=== PATIENT | female | born 1975 | race Caucasian/White ===

== ENCOUNTER 2017-03-02 09:16 | Emergency (ER) | payer MEDICAID ==
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
[2017-03-02 10:37] LABS: Hematocrit 43.7 % (37.0-47.0); Hemoglobin 15.3 gm/dL (12.5-16.0); Mean Cell Volume 91.6 fl (78-100); Mean Corpuscular Hemoglobin 32.1 pg (27-31); Mean Platelet Volume 9.7 fl (6.0-9.5); Neutrophil # 7.6 K/mm3 (1.3-6.0); Neutrophil % 72.8 % (42-75.0); Platelet Count 307 K/mm3 (150-450); Red Blood Count 4.77 M/mm3 (4.2-5.4); Red Cell Distribution Width 12.8 % (11.5-14.0); White Blood Count 10.4 K/mm3 (4.0-10.5)
[2017-03-02 10:38] LABS: Urine Bilirubin Negative (NEGATIVE); Urine Blood Negative /ul (NEGATIVE); Urine Ketone Negative (NEGATIVE); Urine Nitrite Negative (NEGATIVE); Urine Protein Negative (NEGATIVE); Urine Specific Gravity <=1.005 SP.GR. (1.005-1.010); Urine Urobilinogen Normal (NORMAL); Urine pH 6.5 pH (5.0-7.0)
[2017-03-02] MEDS ORDERED: MECLIZINE HCL 25 MG TABLET PO ONE (10:39)
[2017-03-02 10:44] LABS: Urine Appearance Clear; Urine Color Yellow
[2017-03-02 10:45] LABS: Urine Bacteria None Seen; Urine RBC None Seen /hpf (0-5); Urine WBC None Seen /hpf (0-5)
[2017-03-02] MEDS ORDERED: MECLIZINE HCL 25 MG TABLET ONE (10:47)
[2017-03-02 10:55] LABS: Troponin I Less than 0.017 ng/ml (0.00-0.10)
[2017-03-02 10:58] LABS: ALT 15 U/L (19-67); AST 15 U/L (0-48); Albumin * 3.8 gm/dl (3.4-5.0); Alkaline Phosphatase * 62 U/L (50-170); BUN/Creatinine Ratio 13.8 (9.0-21.6); Bilirubin, Total 0.3 mg/dL (0.0-1.1); Blood Urea Nitrogen 12 mg/dL (3-23); Ca. Corrected For Albumin 9.4 mg/dL (8.4-10.2); Calcium * 9.6 mg/dL (7.9-10.9); Carbon Dioxide 23.1 mmol/L (24-32.6); Chloride 107 mmol/L (97-106); Glucose * 109 mg/dL (70-110); Potassium 4.1 mmol/L (3.4-4.6); Sodium 141 mmol/L (132-142); T4 Free * 1.14 ng/dL (0.76-1.46); TSH * 1.315 uIU/mL (0.358-3.74); Total Protein 7.3 gm/dL (6.2-8.2)
[2017-03-02 11:54] VITALS: BP 136/87
== END 2017-03-02 11:54 | disposition home or self-care (01) ==
LOC: ER 09:16
DX: R42 Dizziness and giddiness (principal); H69.81 Other specified disorders of Eustachian tube, right ear; F17.200 Nicotine dependence, unspecified, uncomplicated